=== PATIENT | female | born 1995 | race Caucasian/White ===

== ENCOUNTER 2018-03-05 01:18 | Emergency (ER) | END 2018-03-05 05:19 | disposition home or self-care (01) ==

== ENCOUNTER 2018-03-07 18:29 | Emergency (ER) | END 2018-03-07 20:27 | disposition home or self-care (01) ==

== ENCOUNTER 2018-11-13 10:04 | Emergency (ER) | payer OTHER ==
[~2018-11-13] VITALS: Ht 167.6 cm; Wt 78.9 kg
[~2018-11-13 10:04] MED LIST: ACET1TAB40 PO; IBUP-1542 PO
[2018-11-13 10:08] VITALS: BP 148/80; PULSE 81; RESP 18; Ht 167.6 cm; Wt 78.9 kg
[2018-11-13] MEDS ORDERED: HYDROCODONE/APAP (5/325) TAB PO ONE (11:00)
[2018-11-13] MEDS ORDERED: IBUP-1542 PO (11:43)
--- NOTE | 2018-11-13 11:44 | ERD ---
ER Documentation Chief Complaint Chief Complaint RIGHT ANKLE PAIN HPI 23-year-old female presents with complaint of right ankle pain after twisting ankle while dancing last night. Patient states that she took ibuprofen at 7 AM this morning. Patient states that she has crutches which she has been using. Patient denies any numbness, weakness, bleeding. ROS All systems reviewed and are negative except as per history of present illness. Medications Home Meds Active Scripts Ibuprofen* (Motrin*) 600 Mg Tab, 600 MG PO Q6, #30 TAB Prov:CASEY JOHNSON 11/13/18 Acetaminophen with Codeine (Acetaminophen-Cod #3 Tablet) 1 Each Tablet, 1 TAB PO Q6H PRN for SEVERE PAIN LEVEL 7-10, #20 TAB Prov:MIKO GALE Justice 03/07/18 Ibuprofen* (Motrin*) 600 Mg Tab, 600 MG PO Q6, #30 TAB Prov:AIMEE DIAZ PA-C 03/05/18 Allergies Allergies: Coded Allergies: No Known Drug Allergies (Verified Allergy, Unknown, 11/13/18) PMhx/Soc Medical and Surgical Hx: pt denies Medical Hx, pt denies Surgical Hx Hx Alcohol Use: No Hx Substance Use: No Hx Tobacco Use: No Smoking Status: Never smoker FmHx Family History: No diabetes, No coronary disease, No other Physical Exam Vitals Vital Signs Date Temp Pulse Resp B/P (MAP) Pulse Ox O2 O2 Flow FiO2 Time Delivery Rate 11/13/18 98.0 81 18 148/80 99 10:08 (102) Physical Exam Const: No acute distress Head: Atraumatic Eyes: Normal Conjunctiva ENT: Normal External Ears, Nose and Mouth. Neck: Full range of motion. No meningismus. Resp: Clear to auscultation bilaterally Cardio: Regular rate and rhythm, no murmurs Abd: Soft, non tender, non distended. Normal bowel sounds Skin: No petechiae or rashes Back: No midline or flank tenderness Ext: No cyanosis, or edema Neur: Awake and alert Psych: Normal Mood and Affect Right ankle: Mild ecchymosis noted on the lateral aspect of the right lateral malleolus with no edema or erythema. There is no bony deformity noted. Overlying skin is intact. All compartments are soft and warm. There is full range of motion of ankle and toes and sensation is intact. Results 24 hrs Current Medications Medications Dose Sig/Maria Luisa Start Time Status Last (Trade) Ordered Route PRN Stop Time Admin Dose Reason Admin 1 tab ONCE ONCE 11/13/18 DC 11/13/18 Acetaminophen PO 11:00 10:48 / 11/13/18 11:01 Hydrocodone Bitart ([place] (5/)) Procedures/MDM DIAGNOSTIC IMAGING REPORT Patient: RAMILA SANTOS : 1995 Age: 23 Sex: F MR #: [id number] DOS: 11/13/18 1038 Ordering MD: CASEY JOHNSON Location: [facility] Room/Bed: PROCEDURE: XR Right Ankle CLINICAL INDICATION: Trauma, pain TECHNIQUE: Standard 3 view radiographs were submitted. COMPARISON: None FINDINGS: Osseous structures: Well mineralized and intact with no fracture or destructive process identified. Joint spaces: Well maintained with no significant erosions or spurring evident. Soft tissues: Appear unremarkable. IMPRESSION: Unremarkable right ankle. Physician Tonio Date Time Electronically viewed and signed by Physician Tonio on 11/13/2018 11:23 RH/ CC: CASEY JOHNSON [id number] DM: Patient's presentation is consistent with ankle sprain. Patient was given Shaun wrap in the ER. Patient states she has any crutches she already has at home. splint Assessment: Neurovascularly intact post splint placement with good fit. Patient advised the pain continues she can come back in a week for repeat x-rays to rule out fracture. At this time, patient is stable for discharge and outpatient management. I have instructed the patient to follow-up with his/her primary care physician in 1-2 days. I have discussed with the patient the possibility of needing to see a specialist for further workup and imaging studies if symptoms persist. I have instructed the patient to promptly return to the ER for any new or worsening symptoms including but not limited to increased pain, fever, nausea, vomiting, weakness or LOC. The patient and/or family expressed understanding of and agreement with this plan. All questions were answered. Home care instructions were provided. DISCLAIMER: Inadvertent spelling and grammatical errors are likely due to EHR/dictation software use and do not reflect on the overall quality of patient care. Also, please note that the electronic time recorded on this note does not necessarily reflect the actual time of the patient encounter. Departure Diagnosis: Primary Impression: Ankle sprain Encounter type: initial encounter Involved ligament of ankle: unspecified ligament Laterality: right Qualified Codes: S93.401A - Sprain of unspecified ligament of right ankle, initial encounter Condition: Stable Patient Instructions: Treating Ankle Sprains, Self-Care for Strains and Sprains Additional Instructions: FOLLOW UP WITH YOUR PRIMARY CARE PHYSICIAN TOMORROW.Return to this facility if you are not improving as expected. CASEY JOHNSON Nov 13, 2018 11:44
== END 2018-11-13 12:10 | disposition home or self-care (01) ==
LOC: FTE 10:04
DX: S93.401A Sprain of unspecified ligament of right ankle, initial encounter (principal); S90.01XA Contusion of right ankle, initial encounter; X50.1XXA Overexertion from prolonged static or awkward postures, initial encounter; Y92.9 Unspecified place or not applicable
CPT/HCPCS: 73590; 73610; 73630; Z7502; Z7610

== ENCOUNTER → 2018-12-02 | Emergency (ER) | payer OTHER ==
[~2018-12-02] VITALS: Ht 167.6 cm; Wt 81.7 kg
[~2018-12-02] MED LIST changes: +ACET500C5 PO; +ACETAMINOPHEN 500 MG TAB PO STA; +CYCL10TA7 PO; +CYCLOBENZAPRINE 10 MG TAB PO ONE
[2018-12-02 14:49] VITALS: BP 118/67; PULSE 73; RESP 16; Ht 167.6 cm; Wt 81.7 kg
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
== END | disposition home or self-care (01) ==
LOC: FTE 14:31
DX: S80.12XA Contusion of left lower leg, initial encounter (principal); S80.01XA Contusion of right knee, initial encounter; X58.XXXA Exposure to other specified factors, initial encounter; Y92.9 Unspecified place or not applicable
CPT/HCPCS: Z7502; Z7610; 99283

== ENCOUNTER 2019-01-01 13:19 | Emergency (ER) | payer OTHER ==
[~2019-01-01] VITALS: Ht 167.6 cm; Wt 77.5 kg
[~2019-01-01 13:19] MED LIST changes: -ACETAMINOPHEN 500 MG TAB PO STA; +ALBU8.5H8 INH; +AMOX500C2 PO; +BENZ1LOZ52 MM; -CYCLOBENZAPRINE 10 MG TAB PO ONE; +GUAI120S25 PO
[2019-01-01 13:44] VITALS: BP 122/69; PULSE 97; RESP 18; Ht 167.6 cm; Wt 77.5 kg
== END 2019-01-01 15:12 | disposition home or self-care (01) ==
LOC: FTE 13:19
DX: H66.001 Acute suppurative otitis media without spontaneous rupture of ear drum, right ear (principal); J20.9 Acute bronchitis, unspecified; J02.9 Acute pharyngitis, unspecified
CPT/HCPCS: 99283